=== PATIENT | female | born 1950 | race African-American/Black ===

== ENCOUNTER 2016-10-24 06:29 | Inpatient (IN) | payer MEDICARE, MEDICAID ==
[~2016-10-24] VITALS: Ht 170.2 cm; Wt 72.6 kg
[~2016-10-24 06:29] MED LIST: AMLO10TA80 PO; ATOR40TA70 PO; BENA40TA3 PO; CALCIUM CARB; CARV25TA47 PO; CINA30 PO; CLOP75TA15 PO; DIPH25TA62 PO; HYDR-3513 PO; ISOS60TA4 PO; NITR0.4T SL; RANO500T3 PO; bayer PO; isosorbide dinitrate PO
[2016-10-24] MEDS ORDERED: MECLIZINE 25MG TABLET PO ONE (07:00)
[2016-10-24] MEDS ORDERED: ONDANSETRON HCL 4MG/2ML VIAL IV ONE (07:00)
[2016-10-24 07:19] LABS: BASOPHILS % 0.4 % (0.0-2.0); EOSINOPHILS % 1.7 % (0.0-5.0); HEMATOCRIT. 40.7 % (36.0-48.0); HEMOGLOBIN. 12.9 g/dL (12.0-16.0); LYMPHOCYTES % 18.8 % (20.0-50.0); MEAN CORPUSCULAR HEMOGLOBIN 27.8 pg (28.0-32.0); MEAN CORPUSCULAR VOLUME 87.7 fL (81.0-99.0); MEAN PLATELET VOLUME 10.4 fl (7.4-10.4); MONOCYTES % 7.9 % (2.0-8.0); NEUTROPHILS % 71.2 % (40.0-76.0); PLATELET 109 x1000/uL (130-400); RED BLOOD CELL COUNT 4.64 mill/uL (4.2-5.4)
[2016-10-24 07:25] LABS: INR 1.2; PARTIAL THROMBOPLASTIN TIME 32.9 sec (23.4-31.0); PROTHROMBIN TIME 12.6 sec (9.4-11.6)
[2016-10-24 07:28] LABS: CARBON DIOXIDE 28 mEq/L (21-32); CHLORIDE 99 mEq/L (98-107)
[2016-10-24 07:34] LABS: TROPONIN I 0.16 ng/mL (0.00-0.04)
[2016-10-24] MEDS ORDERED: DIPHENHYDRAMINE 50MG/ML VIAL IV ONE (08:15)
[2016-10-24 12:08] VITALS: BP 177/63
[2016-10-24] MEDS ORDERED: MECLIZINE 25MG TABLET PO PRN (13:15)
[2016-10-24] MEDS ORDERED: CLONIDINE 0.1MG TABLET PO PRN (13:15)
[2016-10-24] MEDS ORDERED: MAGNESIUM/ALUMINUM HYDROXIDE/SIMETHICONE 30ML UDC PO PRN (13:15)
[2016-10-24] MEDS ORDERED: ONDANSETRON HCL 4MG/2ML VIAL IV PRN (13:15)
[2016-10-24] MEDS ORDERED: ACETAMINOPHEN 325MG TABLET PO PRN (13:15)
[2016-10-24] MEDS ORDERED: IPRATROPIUM/ALBUTEROL 0.5-3(2.5)MG/3ML NEB INH PRN (13:15)
[2016-10-24] MEDS ORDERED: SODIUM CHLORIDE 0.9% INJ 3ML FLUSH IVF SCH (14:00)
[2016-10-24] MEDS ORDERED: HYDROCODONE/ACETAMINOPHEN 10/325MG TABLET PO PRN (14:30)
[2016-10-24] MEDS ORDERED: AMLODIPINE 2.5MG TABLET PO SCH (15:00)
[2016-10-24] MEDS ORDERED: DEXTROSE 50% WATER 50ML SYRINGE IV PRN (15:15)
[2016-10-24 16:00] VITALS: BP 175/62
[2016-10-24] MEDS: BLOOD SUGAR DIAGNOSTIC STRIP TEST SCH ×2 (16:41→21:13)
[2016-10-24] MEDS: SEVELAMER CARBONATE 800 MG TABLET PO SCH (17:37)
[2016-10-24] MEDS: DIPHENHYDRAMINE 50MG/ML VIAL IV PRN ×2 (17:37→22:41)
[2016-10-24] MEDS: INSULIN LISPRO 100 UNITS/ML SUBCUT SCH ×2 (17:40→21:00)
[2016-10-24] MEDS ORDERED: RANOLAZINE 500 MG TAB.SR.12H PO SCH (18:00)
[2016-10-24] MEDS ORDERED: BENAZEPRIL 10MG TABLET PO SCH (19:00)
[2016-10-24 20:00] VITALS: BP 148/68
[2016-10-24] MEDS ORDERED: ATORVASTATIN CALCIUM 40MG TABLET PO SCH (21:00)
[2016-10-24] MEDS: CARVEDILOL 3.125 MG TABLET PO SCH (21:11)
[2016-10-25] VITALS: BP 152/58
[2016-10-25] MEDS: DIPHENHYDRAMINE 50MG/ML VIAL IV PRN ×2 (03:43→12:22)
[2016-10-25 04:00] VITALS: BP 170/72
[2016-10-25] MEDS: INSULIN LISPRO 100 UNITS/ML SUBCUT SCH ×2 (07:07→12:07)
[2016-10-25] MEDS: BLOOD SUGAR DIAGNOSTIC STRIP TEST SCH ×2 (07:07→12:07)
[2016-10-25 07:12] LABS: BASOPHILS % 0.8 % (0.0-2.0); EOSINOPHILS % 6.1 % (0.0-5.0); HEMATOCRIT. 34.7 % (36.0-48.0); LYMPHOCYTES % 45.9 % (20.0-50.0); MEAN CORPUSCULAR HEMOGLOBIN 27.7 pg (28.0-32.0); MEAN CORPUSCULAR VOLUME 87.4 fL (81.0-99.0); MEAN PLATELET VOLUME 10.6 fl (7.4-10.4); NEUTROPHILS % 35.2 % (40.0-76.0); PLATELET 108 x1000/uL (130-400); RED BLOOD CELL COUNT 3.97 mill/uL (4.2-5.4); RED CELL DISTRIBUTION WIDTH 16.8 % (11.6-14.6)
[2016-10-25 07:53] VITALS: BP 142/83
[2016-10-25 07:59] LABS: CHLORIDE 100 mEq/L (98-107)
[2016-10-25] MEDS: SEVELAMER CARBONATE 800 MG TABLET PO SCH ×2 (08:15→12:24)
[2016-10-25] MEDS: CARVEDILOL 3.125 MG TABLET PO SCH (08:16)
[2016-10-25 08:34] LABS: CARBON DIOXIDE 28 mEq/L (21-32); HDL CHOLESTEROL 28 mg/dL (40-59); LDL CHOLESTEROL 48 mg/dL (5-100); PHOSPHORUS 5.1 mg/dL (2.5-4.9); TROPONIN I 0.12 ng/mL (0.00-0.04)
[2016-10-25] MEDS ORDERED: CLOPIDOGREL 75MG TABLET PO SCH (09:00)
[2016-10-25] MEDS ORDERED: CINACALCET HCL 30MG TABLET PO SCH (09:00)
[2016-10-25] MEDS ORDERED: AMLODIPINE 10MG TABLET PO SCH (09:00)
[2016-10-25] MEDS ORDERED: ISOSORBIDE MONONITRATE 60MG TABLET SR 24HR PO SCH (09:00)
[2016-10-25 10:39] VITALS: BP_SYST 135; BP_SYST 147; BP_SYST 157; BP_DIAS 54; BP_DIAS 58; BP_DIAS 69
[2016-10-25 11:59] VITALS: BP 150/60
== END 2016-10-25 14:45 | disposition left against medical advice (07) | DRG 73 ==
LOC: ER 06:29 → 8WST 08:33 → EDBEDREQ 08:39 → ENRESERV 10:44
PROVIDERS: ADMIT Internal Medicine; ATTEND Internal Medicine
PROC: 5A1D00Z (ICD-10-PCS; principal; 2016-10-24)
DX: G90.8 Other disorders of autonomic nervous system (principal); N18.6 End stage renal disease; I13.2 Hypertensive heart and chronic kidney disease with heart failure and with stage 5 chronic kidney disease, or end stage renal disease; N17.9 Acute kidney failure, unspecified; J84.9 Interstitial pulmonary disease, unspecified; R00.1 Bradycardia, unspecified; D72.819 Decreased white blood cell count, unspecified; E11.22 Type 2 diabetes mellitus with diabetic chronic kidney disease; E88.09 Other disorders of plasma-protein metabolism, not elsewhere classified; E78.00 Pure hypercholesterolemia, unspecified; Z96.641 Presence of right artificial hip joint; E83.39 Other disorders of phosphorus metabolism; Z53.21 Procedure and treatment not carried out due to patient leaving prior to being seen by health care provider; I25.10 Atherosclerotic heart disease of native coronary artery without angina pectoris; I25.2 Old myocardial infarction; I50.9 Heart failure, unspecified; Z79.02 Long term (current) use of antithrombotics/antiplatelets; Z79.899 Other long term (current) drug therapy; Z82.49 Family history of ischemic heart disease and other diseases of the circulatory system; Z83.3 Family history of diabetes mellitus; Z87.19 Personal history of other diseases of the digestive system; Z87.891 Personal history of nicotine dependence; Z89.411 Acquired absence of right great toe; Z90.710 Acquired absence of both cervix and uterus; Z95.1 Presence of aortocoronary bypass graft; Z95.5 Presence of coronary angioplasty implant and graft; Z99.2 Dependence on renal dialysis; Z88.8 Allergy status to other drugs, medicaments and biological substances
CPT/HCPCS: 36415; 70450; 71010; 73120; 80053; 80061; 82962; 83735; 83880; 83970; 84100; 84443; 84484; 85025; 85379; 85610; 85730; 93005; 96374; 96375; 99285; J1200; J2405; J7030; J8597